=== PATIENT | male | born 1985 | race African-American/Black ===

== ENCOUNTER 2017-07-20 00:37 | Observation (INO) ==
[2017-07-20] MEDS ORDERED: AMMONIA INHALANT 1 EACH AMP INH ONE (01:47)
[2017-07-20 04:26] LABS: Basophils % 0.4 % (0.0-0.8); Eosinophils # 0.1 10*3/uL (0.0-0.87); Eosinophils % 2.4 % (0.00-10.9); Hematocrit 40.3 VOL% (42.0-52.0); Hemoglobin 12.7 GM/DL (14.0-18.0); Immature Granulocytes % 0.2 %; Immature Granulocytes Absolute 0.01 #; Lymphocytes # 1.8 10*3/uL (1.4-4.0); Lymphocytes % 38.9 % (21.2-54.2); Mean Corpuscular HGB Conc 31.5 GM/DL (32-36); Mean Corpuscular Hemoglobin 28 PG (27-34); Mean Corpuscular Volume 87.2 FL (87-102); Mean Platelet Volume 10.3 FL (9.6-12.0); Monocytes # 0.4 10*3/uL (0.11-0.8); Monocytes % 8.7 % (1.7-12.7); Neutrophils # 2.3 10*3/uL (1.4-7.4); Neutrophils % 49.4 % (38.7-73.9); Platelet Count 227 T/CUMM (130-400); Red Blood Count 4.62 MC/CUMM (3.8-5.5); Red Cell Distribution Width 13.7 % (9.3-17.3); White Blood Count 4.6 T/CUMM (4-12)
[2017-07-20 04:42] LABS: Apearance,Urine CLEAR (Clear); Bilirubin,Urine Negative (Negative); Blood, Urine Negative (Negative); Glucose,Urine (UA) Negative (Negative); Ketones,Urine Negative (Negative); Nitrite,Urine Negative (Negative); Protein,Urine Negative; Urine Color Colorless (Yellow); Urine Specific Gravity 1.002 (1.001-1.035); Urine Urobilinogen < 2.0 EU/DL (0.2-1.0); WBC,Urine <1 /HPF (0-6)
[2017-07-20 04:52] LABS: Albumin 3.2 G/DL (3.4-5.0); Bilirubin,Total 0.5 MG/DL (0.2-1.0); Calcium 8.6 MG/DL (8.5-10.1); Osmolality,Calculated 282.8 MOS/KG (273-304); Potassium 4.4 MMOL/L (3.5-5.1); Total Protein 6.3 G/DL (6.4-8.3)
[2017-07-20] MEDS ORDERED: SODIUM CHLORIDE 0.9% 1,000 ML IV STA (05:22)
[2017-07-20 05:23] LABS: Barbiturates Screen,Urine Negative (Negative); Benzodiazepines Screen,Urine Negative (Negative); Cannabinoid Screen,Urine Positive (Negative); Opiate Screen,Urine Negative (Negative); Phencyclidine Screen,Urine Negative (Negative)
[2017-07-20] MEDS ORDERED: PANTOPRAZOLE 40 MG VIAL IV SCH (06:04)
[2017-07-20] MEDS ORDERED: ACETAMINOPHEN 325 MG TABLET PO PRN (06:04)
[2017-07-20] MEDS ORDERED: ONDANSETRON 4 MG/2 ML VIAL IV PRN (06:04)
[2017-07-20] MEDS ORDERED: SODIUM CHLORIDE 0.9% 1,000 ML IV ONE (06:04)
[2017-07-20] MEDS ORDERED: SODIUM CHLORIDE 0.9% 1,000 ML IV SCH (06:04)
[2017-07-20] MEDS ORDERED: THIAMINE INJ 100 MG, FOLIC ACID INJ 1 MG, MULTIVITAMIN INJ 10 ML in DEXTROSE 5% NACL 0.... IV SCH (08:00)
[2017-07-20] MEDS ORDERED: ENOXAPARIN 40 MG/0.4 ML SYRINGE SUBCUT SCH (09:00)
[2017-07-20] MEDS ORDERED: PANTOPRAZOLE 40 MG TABLET PO SCH (09:00)
[2017-07-20] MEDS ORDERED: DOCUSATE SODIUM 100 MG CAPSULE PO SCH (09:00)
[2017-07-20 10:14] LABS: Salicylate < 2.8 MG/DL (2.8-20)
[2017-07-20 10:15] LABS: Acetaminophen < 2.0 UG/ML (10-30)
[2017-07-20 10:30] VITALS: BP 164/106
[2017-07-20 12:57] LABS: Troponin I Only < 0.015 NG/ML (0.00-0.045)
== END 2017-07-20 10:25 | disposition left against medical advice (07) ==
LOC: N.ED 00:37 → N.EDINP 00:37 → N.CC 05:55
PROVIDERS: ADMIT Internal Medicine; ATTEND Internal Medicine

== ENCOUNTER 2018-07-22 09:09 | Inpatient (IN) ==
[2018-07-22] MEDS ORDERED: ZIPRASIDONE 20 MG/1 ML VIAL IM STA (09:21)
[2018-07-22] MEDS ORDERED: ZIPRASIDONE 20 MG/1 ML VIAL IM ONE (09:22)
[2018-07-22] MEDS ORDERED: KETAMINE 500 MG/10 ML VIAL ONE (09:26)
[2018-07-22] MEDS ORDERED: ETOMIDATE 20 MG/10 ML VIAL IV STA (09:36)
[2018-07-22] MEDS ORDERED: ROCURONIUM 100 MG/10 ML VIAL IV ONE ×5 (09:37→12:38)
[2018-07-22] MEDS ORDERED: KETAMINE 500 MG/10 ML VIAL IM ONE (09:42)
[2018-07-22] MEDS ORDERED: PROPOFOL 1,000 MG/100 ML BOTTLE IV ONE (09:42)
[2018-07-22] MEDS ORDERED: ETOMIDATE 20 MG/10 ML VIAL IV ONE (09:50)
[2018-07-22] MEDS ORDERED: SODIUM CHLORIDE 0.9% 1,000 ML IV STA (09:57)
[2018-07-22 10:01] LABS: Basophils % 0.4 % (0.0-0.8); Eosinophils # 0.1 10*3/uL (0.0-0.87); Eosinophils % 1.2 % (0.00-10.9); Hematocrit 47.4 VOL% (42.0-52.0); Immature Granulocytes % 0.4 %; Immature Granulocytes Absolute 0.02 #; Lymphocytes # 1.8 10*3/uL (1.4-4.0); Mean Corpuscular HGB Conc 31.6 GM/DL (32-36); Mean Corpuscular Volume 86.5 FL (87-102); Mean Platelet Volume 9.8 FL (9.6-12.0); Platelet Count 300 T/CUMM (130-400); Red Blood Count 5.48 MC/CUMM (3.8-5.5); Red Cell Distribution Width 14.1 % (9.3-17.3); White Blood Count 5.7 T/CUMM (4-12)
[2018-07-22 10:15] LABS: Barbiturates Screen,Urine Negative (Negative); Benzodiazepines Screen,Urine Negative (Negative); Cannabinoid Screen,Urine Positive (Negative); Opiate Screen,Urine Negative (Negative); Phencyclidine Screen,Urine Negative (Negative)
[2018-07-22 10:16] LABS: ABG Base Excess -0.4 MMOL/L (-2.5-2.5); ABG HCO3 24.1 MMOL/L (20-26); ABG PCO2 37.6 MM HG (35-48); ABG TCO2 20.2 MMOL/L (23-27)
[2018-07-22 10:28] LABS: Alanine Aminotransferase 38 U/L (16-61); Albumin 3.4 G/DL (3.4-5.0); Alkaline Phosphatase 145 U/L (45-117); Aspartate Amino Transferase 35 U/L (0-37); Bilirubin,Total < 0.39 MG/DL (0.2-1.0); Blood Urea Nitrogen 10 MG/DL (7-18); Calcium 8.6 MG/DL (8.5-10.1); Glucose 92 MG/DL (74-106); Osmolality,Calculated 279.3 MOS/KG (273-304); Total Protein 6.7 G/DL (6.4-8.3)
[2018-07-22] MEDS: PROPOFOL 1,000 MG/100 ML BOTTLE IV SCH ×5 (11:03→22:10)
[2018-07-22] MEDS ORDERED: PROPOFOL 1,000 MG/100 ML BOTTLE IV SCH (12:00)
[2018-07-22] MEDS: SODIUM CHLORIDE 0.9% 1,000 ML IV SCH ×2 (12:20→20:06)
[2018-07-22] MEDS: ENOXAPARIN 40 MG/0.4 ML SYRINGE SUBCUT SCH (12:26)
[2018-07-22] MEDS: HALOPERIDOL 5 MG/ML AMP IM PRN ×4 (15:00→18:30)
[2018-07-22] MEDS: LORazepam 1 MG TABLET PER TUBE SCH ×2 (18:20→18:38)
[2018-07-22] MEDS: QUEtiapine 100 MG TABLET PER TUBE SCH (18:20)
[2018-07-22] MEDS ORDERED: fentaNYL INJ 1,250 MCG in SODIUM CHLORIDE 0.9% 225 ML IV PRN (20:13)
[2018-07-22] MEDS ORDERED: MIDAZOLAM 100 MG in SODIUM CHLORIDE 0.9% 80 ML IV PRN (20:14)
[2018-07-22] MEDS: MORPHINE 4 MG/1 ML VIAL IV PRN (22:50)
[2018-07-23] MEDS: LORazepam 1 MG TABLET PER TUBE SCH ×3 (00:16→11:59)
[2018-07-23] MEDS ORDERED: LORazepam 2 MG/1 ML VIAL IV PRN (03:22)
[2018-07-23 04:38] LABS: ABG Base Excess -1.5 MMOL/L (-2.5-2.5); ABG HCO3 23.2 MMOL/L (20-26); ABG Oxygen Saturation 98.5 % (95-100); ABG PCO2 40.9 MM HG (35-48); ABG PH 7.371 (7.35-7.45); ABG TCO2 20.5 MMOL/L (23-27)
[2018-07-23 04:40] LABS: Allen Test Positive
[2018-07-23] MEDS: SODIUM CHLORIDE 0.9% 1,000 ML IV SCH ×3 (04:49→19:35)
[2018-07-23 05:05] LABS: Albumin 2.9 G/DL (3.4-5.0); Bilirubin,Total 0.7 MG/DL (0.2-1.0); Calcium 8.1 MG/DL (8.5-10.1); Total Protein 5.7 G/DL (6.4-8.3)
[2018-07-23] MEDS ORDERED: DEXTROSE 50% 25 GM/50 ML SYRINGE IV ONE ×2 (05:13→05:15)
[2018-07-23 05:31] LABS: Basophils % 0.4 % (0.0-0.8); Eosinophils # 0.1 10*3/uL (0.0-0.87); Hematocrit 43.8 VOL% (42.0-52.0); Hemoglobin 13.5 GM/DL (14.0-18.0); Immature Granulocytes % 0.6 %; Immature Granulocytes Absolute 0.06 #; Lymphocytes # 1.3 10*3/uL (1.4-4.0); Lymphocytes % 12.4 % (21.2-54.2); Mean Corpuscular HGB Conc 30.8 GM/DL (32-36); Mean Corpuscular Volume 89.9 FL (87-102); Mean Platelet Volume 11.4 FL (9.6-12.0); Monocytes % 10.5 % (1.7-12.7); Neutrophils % 75.1 % (38.7-73.9); Platelet Count 223 T/CUMM (130-400); Red Blood Count 4.87 MC/CUMM (3.8-5.5); Red Cell Distribution Width 14.6 % (9.3-17.3); White Blood Count 10.6 T/CUMM (4-12)
[2018-07-23] MEDS: QUEtiapine 100 MG TABLET PER TUBE SCH (11:59)
[2018-07-23] MEDS: ENOXAPARIN 40 MG/0.4 ML SYRINGE SUBCUT SCH (12:00)
[2018-07-23 14:42] LABS: Apearance,Urine CLOUDY (Clear); Bacteria,Urine Occasional /HPF (Few); Bilirubin,Urine Negative (Negative); Blood, Urine Small mg/dL (Negative); Glucose,Urine (UA) Negative (Negative); Ketones,Urine 5 mg/dL (Negative); Mucus,Urine Occasional /LPF (Occasional); Nitrite,Urine Negative (Negative); Protein,Urine Negative; RBC,Urine 9 /HPF (0-4); Squamous Epithelial Cell,Urine Occasional /HPF (0-10); Urine Color Yellow (Yellow); Urine Urobilinogen < 2.0 EU/DL (0.2-1.0); WBC,Urine 11 /HPF (0-6)
[2018-07-23] MEDS: LORazepam 1 MG TABLET PO SCH (18:35)
[2018-07-23] MEDS ORDERED: QUEtiapine 100 MG TABLET PER TUBE SCH (21:00)
[2018-07-23] MEDS: QUEtiapine 100 MG TABLET PO SCH (21:50)
[2018-07-23] MEDS: MORPHINE 4 MG/1 ML VIAL IV PRN (21:51)
[2018-07-24] MEDS: LORazepam 1 MG TABLET PO SCH ×2 (00:41→06:08)
[2018-07-24] MEDS: SODIUM CHLORIDE 0.9% 1,000 ML IV SCH (03:17)
[2018-07-24] MEDS: MORPHINE 4 MG/1 ML VIAL IV PRN (06:08)
[2018-07-24] MEDS: QUEtiapine 100 MG TABLET PO SCH (09:11)
[2018-07-24 11:24] VITALS: BP 160/63
== END 2018-07-24 11:15 | disposition home or self-care (01) | DRG 885 ==
LOC: EDUNIT# → EDBD → N.ED 09:09 → N.EDINP 11:32 → N.ICU 12:33
PROVIDERS: ADMIT Internal Medicine; ATTEND Internal Medicine